=== PATIENT | female | born 1990 | race Two or more races ===

== ENCOUNTER 2016-10-11 12:08 | Outpatient (CLI) | payer OTHER, MEDICAID ==
--- NOTE | 2016-10-11 13:14 | Non Stress Test Report ---
Non Stress Test Datetime Report Generated by CPN: 10/11/2016 13:13 DEMOGRAPHIC EGA NST: 40.1 INDICATION Indication for Study: Ordered by Provider Indication for Study (NST) Other: Repeat MONITORING Monitor Explained: Monitor Explained; Test Explained; Patient Verbalized Understanding Time on Monitor: 10/11/2016 12:41 Time off Monitor: 10/11/2016 13:04 NST Duration: 23 NST INTERVENTIONS NST Interventions: PO Hydration Physician Notified NST: Dr. Neilsen/H. Hernando CNM BABY A: [id number] BABY A Movement : Present Contraction Frequency : irreg FHR Baseline : 125 Accelerations : 15X15 Decelerations : None Variability : Moderate 6-25bpm NST Review: Meets Criteria for Reactive NST NST Review and Verified By : WILMER JACKSON Results: Reactive NST REPORT Report Trigger: Send Report
== END 2016-10-11 13:06 | disposition home or self-care (01) ==
LOC: LC 12:08
PROVIDERS: ATTEND Specialist
PROC: 4A1HXCZ Monitoring of Products of Conception, Cardiac Rate, External Approach (ICD-10-PCS; principal; 2016-10-11)
DX: O48.0 Post-term pregnancy (principal); Z3A.40 40 weeks gestation of pregnancy
CPT/HCPCS: 59025

== ENCOUNTER 2016-10-13 09:03 | Outpatient (CLI) | payer OTHER, MEDICAID | END 2016-10-13 10:44 | disposition home or self-care (01) | LOC: LC 09:03 | PROVIDERS: ATTEND Obstetrics & Gynecology | PROC: 4A1HXCZ Monitoring of Products of Conception, Cardiac Rate, External Approach (ICD-10-PCS; principal; 2016-10-13) | DX: O48.0 Post-term pregnancy (principal); Z3A.40 40 weeks gestation of pregnancy | CPT/HCPCS: 59025 ==

== ENCOUNTER 2016-10-15 02:47 | Inpatient (IN) | payer OTHER, MEDICAID ==
--- NOTE | 2016-10-15 02:51 | Non Stress Test Report ---
Non Stress Test Datetime Report Generated by CPN: 10/15/2016 02:50 DEMOGRAPHIC EGA NST: 40.3 INDICATION Indication for Study: Ordered by Provider Indication for Study (NST) Other: nst VITAL SIGNS Temperature - NST: 98.8 Pulse - NST: 87 RESP - NST: 16 NBPSYS NST: 102 NBPDIA NST: 58 MONITORING Monitor Explained: Monitor Explained; Test Explained; Patient Verbalized Understanding Time on Monitor: 10/13/2016 09:05 Time off Monitor: 10/13/2016 10:48 NST Duration: 103 NST INTERVENTIONS NST Interventions: PO Hydration; Reposition Patient BABY A: [id number] BABY A Movement : Present Contraction Frequency : 0 FHR Baseline : 130 Accelerations : 15X15 Decelerations : None Variability : Moderate 6-25bpm NST Review: Meets Criteria for Reactive NST NST Review and Verified By : Leonel Mondragon RN NST Results: Reactive NST REPORT Report Trigger: Send Report
[2016-10-15 03:18] LABS: APPEARANCE,URINE CLOUDY; BILIRUBIN,URINE NEGATIVE (NEGATIVE); GLUCOSE, URINE NEGATIVE (NEGATIVE); KETONES,URINE NEGATIVE (NEGATIVE); LEUKOCYTE ESTERASE,URINE LARGE (NEGATIVE); NITRITE,URINE NEGATIVE (NEGATIVE); PROTEIN,URINE 100 mg/dL (NEGATIVE); URINE SPECIFIC GRAVITY 1.005; UROBILINOGEN,URINE NEGATIVE mg/dL (<2.0)
[2016-10-15 03:40] LABS: AMNISURE (ROM) POSITIVE (NEGATIVE)
[2016-10-15 04:00] LABS: URINE BARBITURATES SCREEN NEGATIVE; URINE METHADONE SCREEN NEGATIVE; URINE OPIATES LOW NEGATIVE; URINE PHENCYCLIDINE SCREEN NEGATIVE
[2016-10-15 04:26] LABS: ABSOLUTE BASOPHILS # (AUTO) 0.1 10^3/uL (0.0-0.2); ABSOLUTE EOSINOPHILS # (AUTO) 0.1 10^3/uL (0.0-0.6); ABSOLUTE LYMPHOCYTES (AUTO) 2.6 10^3/uL (0.5-4.7); ABSOLUTE MONOCYTES (AUTO) 1.3 10^3/uL (0.1-1.4); ABSOLUTE NEUT (AUTO) 15.3 10^3/uL (1.7-8.2); BASOPHILS % (AUTO) 0.4 % (0-2); EOSINOPHILS % (AUTO) 0.6 % (0-6); HEMATOCRIT 34.3 % (36.0-47.0); HEMOGLOBIN 11.7 g/dL (12.0-15.5); HGB HCT DIFFERENCE 0.8; LYMPHOCYTES % (AUTO) 13.5 % (13-45); MEAN CORPUSCULAR HEMOGLOBIN 28.4 pg (27.0-33.4); MEAN CORPUSCULAR HGB CONC 34.1 g/dL (32.0-36.0); MEAN CORPUSCULAR VOLUME 83 fl (80-97); MONOCYTES % (AUTO) 6.8 % (3-13); RED BLOOD COUNT 4.12 10^6/uL (3.72-5.28); RED CELL DISTRIBUTION WIDTH 15.7 % (11.5-14.0); SEGMENTED NEUTROPHILS % (AUTO) 78.7 % (42-78); WHITE BLOOD COUNT 19.4 10^3/uL (4.0-10.5)
[2016-10-15] MEDS: RINGERS SOLUTION,LACTATED 1,000 ML IV PRN ×3 (05:08→22:17)
[2016-10-15] MEDS ORDERED: OXYTOCIN/NORMAL SALINE 1,000 ML IV PRN (08:16)
[2016-10-15] MEDS ORDERED: OXYTOCIN/NORMAL SALINE 0 UNIT/0 ML RTUINJ ONE (08:29)
[2016-10-15] MEDS ORDERED: EPHEDRINE SULFATE INJ 50 MG/1 ML AMPULE ONE (10:51)
[2016-10-15] MEDS ORDERED: FENTANYL/BUPIVACAINE/NS/PF 200 MCG/100 ML RTUINJ EPI ONE ×2 (10:51→19:59)
[2016-10-15] MEDS ORDERED: PHENYLEPHRINE HCL INJ/PF 10 MG/1 ML SDV ONE (10:51)
[2016-10-15] MEDS ORDERED: FENTANYL CITRATE INJ/PF 100 MCG/2 ML AMPUL ONE (10:51)
[2016-10-15] MEDS ORDERED: BUPIVACAINE HCL 0.25 % INJ/PF (2.5 MG/1 ML) 30 ML VIAL ONE (10:52)
[2016-10-15] MEDS ORDERED: OXYTOCIN/NORMAL SALINE 20 UNIT/1,000 ML RTUINJ ONE ×2 (12:17→21:48)
[2016-10-15] MEDS ORDERED: ACETAMINOPHEN 325 MG TABLET ONE (18:46)
[2016-10-15] MEDS ORDERED: ACETAMINOPHEN 325 MG TABLET PO ONE (18:47)
[2016-10-15] MEDS ORDERED: LIDOCAINE 2%/EPINEPHRINE INJ 20 ML VIAL ONE (19:59)
[2016-10-15] MEDS ORDERED: SODIUM BICARBONATE 8.4% INJ 50 MEQ/50 ML DISP.SYRIN ONE (20:01)
[2016-10-15] MEDS ORDERED: MISOPROSTOL 0.2 MG TABLET ONE (21:48)
[2016-10-15] MEDS ORDERED: LIDOCAINE 1% INJ-PF (10 MG/ML) 30 ML SDV ONE (21:48)
[2016-10-15] MEDS ORDERED: PENICILLIN G-K 5 MILLION UNIT VIAL ONE (22:11)
[2016-10-15] MEDS ORDERED: PENICILLIN G POTASSIUM 5,000,000 UNIT in DEXTROSE 5%-WATER 100 ML IV ONE (22:30)
[2016-10-16] MEDS ORDERED: PENICILLIN G POTASSIUM 2,500,000 UNIT in DEXTROSE 5%-WATER 50 ML IV SCH (02:30)
[2016-10-16] MEDS ORDERED: CITRIC ACID/SODIUM CITRATE ORAL SOLN 15 ML UDCUP ONE (03:16)
[2016-10-16] MEDS ORDERED: CEFAZOLIN 2 GM/D5W RTU 2 GM/50 ML RTUPB IV ONE (03:16)
[2016-10-16] MEDS ORDERED: PENICILLIN G-K 5 MILLION UNIT VIAL ONE (04:01)
[2016-10-16] MEDS: RINGERS SOLUTION,LACTATED 1,000 ML IV PRN ×3 (04:06→19:17)
[2016-10-16] MEDS ORDERED: LIDOCAINE 2%/EPINEPHRINE INJ 20 ML VIAL ONE (06:26)
[2016-10-16] MEDS ORDERED: OXYTOCIN/NORMAL SALINE 0 UNIT/0 ML RTUINJ ONE (07:11)
[2016-10-16] MEDS ORDERED: KETAMINE HCL INJ 500 MG/10 ML VIAL ONE (07:11)
[2016-10-16] MEDS ORDERED: OXYTOCIN 10 UNIT/ML VIAL ONE (07:11)
[2016-10-16] MEDS ORDERED: EPHEDRINE SULFATE INJ 50 MG/1 ML AMPULE ONE (07:12)
[2016-10-16] MEDS ORDERED: FENTANYL CITRATE INJ/PF 100 MCG/2 ML AMPUL ONE (07:12)
[2016-10-16] MEDS ORDERED: MIDAZOLAM 2 MG/2 ML INJ ONE (07:12)
[2016-10-16] MEDS ORDERED: ONDANSETRON HCL INJ/PF 4 MG/2 ML SDV IV PRN (07:28)
[2016-10-16] MEDS ORDERED: PROMETHAZINE HCL INJ 25 MG/1 ML VIAL IV PRN ×3 (07:28→08:44)
[2016-10-16] MEDS ORDERED: FENTANYL CITRATE INJ/PF 100 MCG/2 ML AMPUL IV PRN ×3 (07:28)
[2016-10-16] MEDS ORDERED: MEPERIDINE HCL/PF INJ 25 MG/1 ML DISP.SYRIN IV PRN (07:28)
[2016-10-16] MEDS ORDERED: MORPHINE SULFATE 10 MG/ML INJ IV PRN ×2 (07:28→08:44)
[2016-10-16] MEDS ORDERED: DIPHENHYDRAMINE HCL 50 MG/ML VIAL IV PRN (07:28)
[2016-10-16] MEDS ORDERED: PENICILLIN G-K 5 MILLION UNIT VIAL IV SCH (08:00)
[2016-10-16] MEDS ORDERED: ACETAMINOPHEN 100 ML IV ONE (08:36)
[2016-10-16] MEDS ORDERED: OXYCODONE-ACETAMINOPHEN 5-325 MG TABLET PO PRN (08:44)
[2016-10-16] MEDS ORDERED: MEASLES,MUMPS&RUBELLA VACC/PF 0.5 ML VIAL SUBCUT PRN (08:44)
[2016-10-16] MEDS ORDERED: SIMETHICONE 80 MG TAB.CHEW PO PRN (08:44)
[2016-10-16] MEDS ORDERED: RINGERS SOLUTION,LACTATED 1,000 ML IV PRN (08:44)
[2016-10-16] MEDS ORDERED: ACETAMINOPHEN 325 MG TABLET PO PRN (08:44)
[2016-10-16] MEDS ORDERED: OXYTOCIN/NORMAL SALINE 1,000 ML IV PRN (08:44)
[2016-10-16] MEDS ORDERED: DIPH/PERTUSS(ACELL)/TETANUS VAC/PF 0.5 ML SYR (>=10YO) IM PRN (08:44)
[2016-10-16] MEDS ORDERED: ACETAMINOPHEN 100 ML IV PRN (08:44)
[2016-10-16] MEDS ORDERED: OXYTOCIN/NORMAL SALINE 20 UNIT/1,000 ML RTUINJ ONE ×2 (08:46→09:42)
--- NOTE | 2016-10-16 08:54 | OPERATIVE REPORT E ---
Operative Report NAME: MARTHA PATRICK : 1990 AGE: 26Y DATE OF SURGERY: 10/16/2016 ROOM: LR200 PREOPERATIVE DIAGNOSIS: 1. IUP at 40 weeks and 6 days. 2. Failure to descend. POSTOPERATIVE DIAGNOSES: 1. IUP at 40 weeks and 6 days. 2. Failure to descend. SURGEON: AMISH MONTOYA M.D. ANESTHESIA: Dr. Ricci with epidural. FINDINGS: Male in cephalic presentation with Apgars of 9 and 9, weight 6 pounds 15 ounces. ESTIMATED BLOOD LOSS: 800 mL. SPECIMENS REMOVED: None. PROCEDURE: A low transverse hysterotomy section. PROCEDURE IN DETAIL: Patient was taken to the operating room, prepared and draped in a normal sterile fashion in the supine position with a leftward tilt. A transverse skin incision was made with a scalpel and carried through to the underlying layer of fascia with the same scalpel. The fascia was excised and extended laterally with Mayoelise. The fascia was dissected from the rectus muscle sharply and bluntly and the rectus muscle was divided. The peritoneum was entered sharply with Metzenbaums and the bladder was noted to be quite high, presumably from obstruction by the head. The bladder flap was created using Metzenbaums. The bladder blade was then inserted and the hysterotomy was nicked and extended laterally with surgeon finger fracture. The was then delivered atraumatically. The nose and mouth were suctioned with a suction bulb. The cord was clamped and cut and the was handed off to awaiting pediatricians. The placenta was removed manually. The uterus was exteriorized and cleared of clots and debris. The hysterotomy was closed with 0 Monocryl in a running, locked fashion and a second layer of the same suture was used to imbricate to ensure hemostasis. The uterus was then returned to the abdomen and peritoneal cavity was cleared of clots and debris. The rectus muscle and peritoneum were reapproximated with 2 mattress stitches of 2-0 Chromic. The fascia was closed with 0 Vicryl. The subcutaneous layer was closed with plain catgut and the skin was closed with 4-0 Vicryl. Patient tolerated procedure well. Sponge, lap, and needle counts were correct x2, and the patient was taken to recovery in stable condition. DICTATING PHYSICIAN: AMISH MONTOYA M.D. [id number] PHY#: [id number] ID: [id number] JOB#: [id number] ACCT: [id number] cc:AMISH MONTOYA M.D. >
--- NOTE | 2016-10-16 09:31 | Delivery Summary ---
Del Sum A-C Datetime Report Generated by CPN: 10/16/2016 09:31 DELIVERY PERSONNEL DELIVERY PERSONNEL: [id number] Delivery Doctor:: Parul Sanchez MD Anesthesiologist:: Eduardo Morales MD CHEMIST INSTRUMENTATION:: Gaby Bliss CRNA Labor and Delivery Nurse:: Paula Gasca RN Neonatal Nurse Practitioner:: ARANZA Cruz Nursery Nurse:: Asiya Hall RN Student Observers:: SN Jenaro Jewelry Sales Associate/LANDSCAPE PAINTER: Crystal Rdz CST Jewelry Sales Associate/LANDSCAPE PAINTER: Melvin Pettit ST MATERNAL INFORMATION Delivery Anesthesia: Epidural Medications After Delivery: Pitocin Bolus-Please Comment; Pitocin Drip 20 Units/1000ml NSS Estimated Blood Loss (ml): 600 LABOR SUMMARY EDC: 10/10/2016 00:00 No. Babies in Womb: 1 Attempted: No Labor Anesthesia: Epidural LABOR INFORMATION Complete Dilatation: 10/16/2016 01:38 Oxytocin: Augmentation Group B Beta Strep: negative Steroids Given: None Reason Steroids Not Administered: Not Applicable MEMBRANES Membranes Rupture Method: Spontaneous Rupture of Membranes: 10/15/2016 03:00 Length of Rupture (hr): 28.83 Amniotic Fluid Color: Clear Amniotic Fluid Amount: Moderate Amniotic Fluid Odor: Normal STAGES OF LABOR Stage 2 hr: 6 Stage 2 min: 12 Stage 3 hr: 0 Stage 3 min: 0 CSECTION DELIVERY Primary Indication: Failure of Descent CSection Urgency: Non-Scheduled CSection Incidence: Primary Labor: Labor Elective: Elective CSection Incision: Lower Uterine Transverse BABY A INFORMATION Infant Delivery Date/Time: 10/16/2016 07:50 Method of Delivery: Born in Route : No : N/A Forceps: N/A Vacuum Extraction: N/A Shoulder Dystocia : No PRESENTATION/POSITION BABY A Presentation: Cephalic PLACENTA INFORMATION BABY A Placenta Delivery Time : 10/16/2016 07:50 Placenta Method of Delivery: Manual Removal Placenta Status: Delivered SCORES BABY A Heart Rate 1 min: >100 bpm Resp Effort 1 min: Good Cry Reflex Irritability 1 min: Cough or Sneeze or Pulls Away Muscle Tone 1 min: Active Motion Color 1 min: Body Lolo, Extremities Blue Resuscitation Effort 1 min: Tactile Stimulation SCORE 1 MIN: 9 Heart Rate 5 min: >100 bpm Resp Effort 5 min: Good Cry Reflex Irritability 5 min: Cough or Sneeze or Pulls Away Muscle Tone 5 min: Active Motion Color 5 min: Body Lolo, Extremities Blue Resuscitation Effort 5 min: N/A SCORE 5 MIN: 9 INFORMATION BABY A Gestational Age at Delivery: 40.6 Gestational Status: Full Term- 39- 40.6 Weeks Outcome : Liveborn Infant Condition : Stable Infant Sex: Male IDENTIFICATION BABY A Infant Verification Date/Time: 10/16/2016 08:08 ID Band Number: [id number] Mother's Name Verified: Yes Infant RN Verifying : WILMER Daley Additional Verifying Personnel: WILMER Olsen WEIGHT/LENGTH BABY A Birthweight (gm): 3155 Infant Weight (lb): 6 Weight (oz): 15 Infant Length (in): 19.75 Infant Length (cm): 50.17 CORD INFORMATION BABY A No. Cord Vessels: 3 Nuchal Cord : N/A Cord Blood Taken: Yes-For Storage (Mom's Blood type +) Suction: Mouth; Nose ASSESSMENT BABY A Complications: None Physical Findings at Delivery: Caput Succedaneum; Molding of the Head Respirations: Appears Normal Skin to Skin: No Commercial Trailer Truck Driver/ALS Called : Yes Care By: Lili Hall RN Transferred To: Nursery
--- NOTE | 2016-10-16 10:29 | Admission Physical ---
Datetime Report Generated by CPN: 10/16/2016 10:29 CURRENT ADMISSION Chief Complaint: Uterine Contractions Indication for Induction: Not Applicable Admit Plan: Admit to Unit; Initiate Labor Protocol ALLERGIES Medication Allergies: No Medication Allergies: No Known Allergies (10/15/2016) Medication Allergies: No Known Allergies (10/11/2016) Latex: No Latex Allergies Food Allergies: N/A Environmental Allergies: Seasonal OBSTETRICAL HISTORY EDC: 10/10/2016 00:00 : 1 Para: 0 Term: 0 : 0 SAB: 0 IAB: 0 Ectopic: 0 Livin Cesareans: 0 VBACs: 0 Multiple Births: 0 Gestational Diabetes: No Rh Sensitization: No Incompetent Cervix: No MARIEL: No Infertility: No ART Treatment: No Uterine Anomaly: No IUGR: No Hx Previous C/S: No Macrosomia: No Hx Loss/Stillborn: No PIH: No Hx : No Placenta Previa/Abruption: No Depression/PP Depression: No PTL/PROM: No Post Hemorrhage: No Current Procedures: Ultrasound; NST Obstetrical History Comments: g1-current SEE RECORDS Alcohol: No Marijuana : No Cocaine: No Other Illicit Drugs: No Cigarettes: Never Smoker. [id number] MEDICAL HISTORY Diabetes: No Blood Transfusion: No Pulmonary Disease (Asthma, TB): Yes Breast Disease: No Hypertension: No Flight Engineer Surgery: No Heart Disease: No Hosp/Surgery: No Autoimmune Disorder: No Anesthetic Complications: No Kidney Disease: No Abnormal Pap Smear: Yes Neuro/Epilepsy: No Psychiatric Disorders: No Other Medical Diseases: No Hepatitis/Liver Disease: No Significant Family History: No Varicosities/Phlebitis: No Trauma/Violence : No Thyroid Dysfunction: No Medical History Comments: sickle cell trait carrier ( negative), asthma, abnormal pap with parakeratosis and hyperkeratosis INFECTIOUS HISTORY Gonorrhea: No Genital Herpes: No Chlamydia: No Tuberculosis: No Syphilis: No Hepatitis: No HIV/AIDS Exposure: No Rash or Viral Illness: No HPV: No PHYSICAL EXAM General: Normal HEENT: Normal Neurologic: Normal Thyroid: Deferred Heart: Normal Lungs: Normal Breast: Deferred Back: Normal Abdomen: Normal Genitourinary Exam: Normal Extremities: Normal DTRs: Normal Pelvic Type: Adequate Vital Signs: Reviewed; Within Normal Limits VAGINAL EXAM Dilatation: 2 Effacement: 60 Station: -1 MEMBRANES Membranes: Ruptured Amniotic Fluid Color: Clear FETUS A EGA: 40.5 Monitoring: External US FHR- Baseline: 130 Variability: Moderate 6-25bpm Accelerations: 15X15 Decelerations: None FHR Category: Category I Admit Comment: Will admit for Labor PLANS FOR LABOR AND DELIVERY Labor and Delivery: Cord Blood Banking; Cord Blood Donation; Placenta Request Pain Management: Epidural Feeding Preference: Breast Benefit of Breast Feed Discussed: Yes Circumcision: Yes INFORMED CONSENT Signature: with User ID: [email or web address]
[2016-10-16] MEDS ORDERED: DEXAMETHASONE SOD PHOSPHATE INJ 4 MG/1 ML VIAL ONE (11:30)
[2016-10-16] MEDS ORDERED: KETOROLAC TROMETHAMINE 60 MG/2 ML SDV ONE (11:30)
[2016-10-16] MEDS ORDERED: ONDANSETRON HCL INJ/PF 4 MG/2 ML SDV ONE (11:30)
[2016-10-16] MEDS ORDERED: METOCLOPRAMIDE HCL INJ/PF 10 MG/2 ML SDV ONE (11:30)
[2016-10-16] MEDS: PRENATAL VITAMIN W-O CA NO5/FE FUMARATE/FA CAPSULE PO SCH (11:33)
[2016-10-16] MEDS: DOCUSATE SODIUM 100 MG CAPSULE PO SCH ×2 (11:33→18:05)
[2016-10-16] MEDS: IBUPROFEN 800 MG TABLET PO SCH ×2 (11:34→18:06)
[2016-10-16] MEDS ORDERED: KETOROLAC TROMETHAMINE INJ/PF 30 MG/1 ML SDV ONE (13:36)
[2016-10-16] MEDS: OXYCODONE-ACETAMINOPHEN 5-325 MG TABLET PO PRN ×2 (13:37→19:20)
[2016-10-16] MEDS: KETOROLAC TROMETHAMINE INJ/PF 30 MG/1 ML SDV IV SCH ×2 (13:38→21:34)
[2016-10-17] MEDS: IBUPROFEN 800 MG TABLET PO SCH ×5 (00:37→23:14)
[2016-10-17] MEDS: OXYCODONE-ACETAMINOPHEN 5-325 MG TABLET PO PRN ×5 (00:56→23:15)
[2016-10-17 07:12] LABS: HEMATOCRIT 25.2 % (36.0-47.0); HGB HCT DIFFERENCE 1.2; MEAN CORPUSCULAR HEMOGLOBIN 28.5 pg (27.0-33.4); MEAN CORPUSCULAR HGB CONC 34.7 g/dL (32.0-36.0); MEAN CORPUSCULAR VOLUME 82 fl (80-97); RED BLOOD COUNT 3.07 10^6/uL (3.72-5.28); RED CELL DISTRIBUTION WIDTH 15.8 % (11.5-14.0); WHITE BLOOD COUNT 24.6 10^3/uL (4.0-10.5)
[2016-10-17 07:59] LABS: HEMOGLOBIN 8.8 g/dL (12.0-15.5)
[2016-10-17] MEDS: DOCUSATE SODIUM 100 MG CAPSULE PO SCH ×2 (10:06→17:33)
[2016-10-17] MEDS: PRENATAL VITAMIN W-O CA NO5/FE FUMARATE/FA CAPSULE PO SCH (10:06)
--- NOTE | 2016-10-17 10:29 | PDOC PROGRESS REPORT ---
Subjective-OB Subjective: Post Delivery Day: 26 year old. Denies any needs at this time Physical Exam (OB) Vital Signs: Temp Pulse Resp BP Pulse Ox 97.9 F 95 14 114/69 99 10/17/16 08:00 10/17/16 08:00 10/17/16 08:00 10/17/16 08:00 10/17/16 08:00 Intake & Output 10/16/16 10/17/16 10/18/16 06:59 06:59 06:59 Intake Total 1450 Output Total 4250 Balance -2800 - Dressing Removed: No - Opsite Incision: Draining Closure Type: opsite - Lochia Lochia Amount: Small 10-25 ml Lochia Color: Rubra/Red - Abdomen Description: Tender, Soft, Round Hernia Present: No Bowel Sounds: Normoactive Flatus Presence: Present Stool: No Fundal Description: Firm, Midline Fundal Height: u/u - u/2 Objective-Diagnostic Laboratory: 10/17/16 06:50 10/17/16 06:50 WBC 24.6 H RBC 3.07 L Hgb 8.8 L D Hct 25.2 L MCV 82 MCH 28.5 MCHC 34.7 RDW 15.8 H Plt Count 175
[2016-10-18] MEDS: IBUPROFEN 800 MG TABLET PO SCH ×4 (06:03→23:17)
[2016-10-18 07:47] LABS: HEMATOCRIT 25.6 % (36.0-47.0); HEMOGLOBIN 8.8 g/dL (12.0-15.5); HGB HCT DIFFERENCE 0.8; MEAN CORPUSCULAR HEMOGLOBIN 28.5 pg (27.0-33.4); MEAN CORPUSCULAR HGB CONC 34.3 g/dL (32.0-36.0); MEAN CORPUSCULAR VOLUME 83 fl (80-97); RED BLOOD COUNT 3.08 10^6/uL (3.72-5.28); RED CELL DISTRIBUTION WIDTH 15.5 % (11.5-14.0); WHITE BLOOD COUNT 17.3 10^3/uL (4.0-10.5)
--- NOTE | 2016-10-18 08:52 | PDOC PROGRESS REPORT ---
Subjective-OB Subjective: Post Delivery Day: 26 year old. Denies any needs at this time Laying in bed, hsb at BS, feeling OK, states she does not want to go home today , does not feel good and baby is getting circumcision, pain under control, scant bleeding, , voiding, eating well Physical Exam (OB) Vital Signs: Temp Pulse Resp BP Pulse Ox 98.3 F 80 16 111/61 98 10/18/16 07:43 10/18/16 07:43 10/18/16 07:43 10/18/16 07:43 10/18/16 07:43 Intake & Output 10/17/16 10/18/16 10/19/16 06:59 06:59 06:59 Intake Total 1450 240 Output Total 4250 Balance -2800 240 - Dressing Removed: No Incision: Dressing Closure Type: opsite - Lochia Lochia Amount: Small 10-25 ml Lochia Color: Rubra/Red - Abdomen Description: Soft, Round Hernia Present: No Fundal Description: Firm, Midline Fundal Height: u/u - u/2 Objective-Diagnostic Laboratory: 10/18/16 07:39 10/18/16 07:39 WBC 17.3 H RBC 3.08 L Hgb 8.8 L Hct 25.6 L MCV 83 MCH 28.5 MCHC 34.3 RDW 15.5 H Plt Count 223 Assessment and Plan(PN) - Assessment and Plan (1) Prolonged rupture of membranes, delivered Is this a current diagnosis for this admission?: Yes (2) Sickle cell trait Is this a current diagnosis for this admission?: Yes (3) Failure to progress in labor, delivered, current hospitalization Is this a current diagnosis for this admission?: Yes (4) Delivery by emergency caesarean section Is this a current diagnosis for this admission?: Yes - Time Spent with Patient Time with patient: Less than 15 minutes Medications reviewed and adjusted accordingly: Yes - Disposition Anticipated Discharge: Home Within: within 24 hours
[2016-10-18] MEDS: DOCUSATE SODIUM 100 MG CAPSULE PO SCH ×2 (11:31→18:50)
[2016-10-18] MEDS: PRENATAL VITAMIN W-O CA NO5/FE FUMARATE/FA CAPSULE PO SCH (11:32)
[2016-10-18] MEDS: OXYCODONE-ACETAMINOPHEN 5-325 MG TABLET PO PRN (19:24)
[2016-10-19] MEDS: IBUPROFEN 800 MG TABLET PO SCH ×3 (06:10→18:12)
[2016-10-19] MEDS: OXYCODONE-ACETAMINOPHEN 5-325 MG TABLET PO PRN ×3 (06:17→18:13)
--- NOTE | 2016-10-19 09:05 | PDOC DISCHARGE SUMMARY ---
Final Diagnosis Discharge Date: 10/19/16 - Final Diagnosis (1) Asthma Is this a current diagnosis for this admission?: Yes (2) Acute blood loss anemia Is this a current diagnosis for this admission?: Yes (3) Delivery by emergency caesarean section Is this a current diagnosis for this admission?: Yes (4) Failure to progress in labor, delivered, current hospitalization Is this a current diagnosis for this admission?: Yes (5) Is this a current diagnosis for this admission?: Yes (6) Prolonged rupture of membranes, delivered Is this a current diagnosis for this admission?: Yes (7) Sickle cell trait Is this a current diagnosis for this admission?: Yes Discharge Data - Discharge Medication Home Medications: Cetirizine HCl [Zyrtec] 1 tab PO DAILY 10/11/16 Pnv #116/Iron Fumarate/FA/Dha [Expecta Combo Pack] 1 tab PO DAILY 10/11 Budesonide/Formoterol Fumarate [Symbicort HFA 160-4.5 mcg Inhaler 6 gm] 2 inhaler IH BID 10/15/16 Montelukast Sodium [Singulair 10 mg Tablet] 1 tab PO DAILY 10/15/16 Docusate Sodium [Colace 100 mg Capsule] 100 mg PO BID #60 capsule 10/19/16 Ferrous Sulfate [Feosol 325 mg Tablet] 325 mg PO DAILY #30 tab 10/19/16 Ibuprofen [Motrin 800 mg Tablet] 800 mg PO Q6 #60 tablet 10/19/16 Oxycodone HCl/Acetaminophen [Percocet 5-325 mg Tablet] 2 tab PO Q4HP PRN #30 tablet 10/19/16 Gestational Age: 40.6 Reason(s) for Admission: Onset of Labor Procedures: NST Intrapartum Procedure(s): : Low Cervical, Transverse - Crump Data Baby 1 Male at 1 minute: 9 at 5 minutes: 9 Weight: 315 kg Home with Mother: No Complications: Yes - weight loss - Diagnosis Test Laboratory: Temp Pulse Resp BP Pulse Ox 97.9 F 76 16 120/91 H 99 10/19/16 08:35 10/19/16 08:35 10/19/16 03:40 10/19/16 08:35 10/19/16 03:40 10/15/16 10/15/16 10/17/16 02:58 04:10 06:50 RBC 4.12 3.07 L Hgb 11.7 L 8.8 L D Hct 34.3 L 25.2 L Urine Opiates Screen NEGATIVE 10/18/16 07:39 RBC 3.08 L Hgb 8.8 L Hct 25.6 L Urine Opiates Screen - Discharge information/Instructions Discharge Activity: Activity As Tolerated, No Driving, No Lifting Over 10 Pounds , Pelvic Rest, No tub bath Discharge Diet: Regular Disposition: HOME, SELF-CARE Follow up with: [facility] in: 1, Weeks
[2016-10-19] MEDS: PRENATAL VITAMIN W-O CA NO5/FE FUMARATE/FA CAPSULE PO SCH (10:03)
[2016-10-19] MEDS: DOCUSATE SODIUM 100 MG CAPSULE PO SCH ×2 (10:03→18:13)
[2016-10-19 10:49] VITALS: BP 105/67
== END 2016-10-19 18:26 | disposition home or self-care (01) | DRG 766 ==
LOC: LC 02:47 → LR 03:49 → 2S 10-16 10:28
PROVIDERS: ADMIT Obstetrics & Gynecology; ATTEND Obstetrics & Gynecology
PROC: 4A1HXCZ Monitoring of Products of Conception, Cardiac Rate, External Approach (ICD-10-PCS; 2016-10-15)
PROC: 10D00Z1 Extraction of Products of Conception, Low, Open Approach (ICD-10-PCS; principal; 2016-10-16)
DX: O62.2 Other uterine inertia (principal); O99.52 Diseases of the respiratory system complicating childbirth; J45.909 Unspecified asthma, uncomplicated; O99.02 Anemia complicating childbirth; D57.3 Sickle-cell trait; Z3A.40 40 weeks gestation of pregnancy; Z37.0 Single live birth
CPT/HCPCS: 1961; 36415; 80307; 81005; 84112; 85025; 85027; 86592; 86850; 86900; 86901; 94799; J0131; J0690; J1100; J1885; J2250; J2370; J2405; J2540; J2590; J2765; J3010; J3490; J7120